=== PATIENT | female | born 1945 | race Asian ===

== ENCOUNTER 2024-04-04 22:13 | Emergency (ER) | payer MEDICARE, MEDICAID ==
[~2024-04-04] VITALS: Ht 157.5 cm; Wt 59.0 kg
[2024-04-04 22:20] VITALS: BP 151/84; PULSE 72; RESP 16; TEMP 98.4; O2SAT 98
[2024-04-04] MEDS: DIPHENHYDRAMINE 25MG CAPSULE PO ONE (23:54)
[2024-04-04] MEDS: FAMOTIDINE 20MG TABLET PO ONE (23:55)
[2024-04-05 00:20] LABS: CLARITY URINE CLEAR (CLEAR); COLOR URINE YELLOW (YELLOW); GLUCOSE URINE NEGATIVE (NEGATIVE); KETONES URINE NEGATIVE (NEGATIVE); LEUKOCYTE ESTERASE URINE NEGATIVE (NEGATIVE); NITRITE URINE NEGATIVE (NEGATIVE); OCCULT BLOOD URINE NEGATIVE (NEGATIVE); PROTEIN URINE NEGATIVE (NEGATIVE); SPECIFIC GRAVITY URINE 1.008 (1.005-1.030); UROBILINOGEN URINE 0.2 E.U./dL (0.2-1.0)
[2024-04-05 00:27] LABS: BASOPHILS % 0.7 % (0.0-2.0); EOSINOPHILS % 4.1 % (0.0-5.0); HEMATOCRIT. 38.2 % (36.0-48.0); LYMPHOCYTES % 18.2 % (20.0-50.0); MEAN CORPUSCULAR HEMOGLOBIN 29.7 pg (28.0-32.0); MEAN CORPUSCULAR VOLUME 87.2 fL (81.0-99.0); MEAN PLATELET VOLUME 7.4 fl (7.4-10.4); MONOCYTES % 7.6 % (2.0-8.0); NEUTROPHILS % 69.4 % (40.0-76.0); PLATELET 326 x1000/uL (130-400); RED BLOOD CELL COUNT 4.38 mill/uL (4.2-5.4); RED CELL DISTRIBUTION WIDTH 13.2 % (11.6-14.6); WHITE BLOOD COUNT 9.6 x1000/uL (4.5-11.0)
[2024-04-05 00:37] LABS: CHLORIDE 104 mEq/L (98-107); SODIUM 139 mEq/L (136-145)
[2024-04-05 00:38] LABS: CARBON DIOXIDE 28 mEq/L (21-32)
[2024-04-05 00:43] LABS: CREATININE 0.8 mg/dL (0.6-1.0); GLUCOSE 156 mg/dL (70-105); UREA NITROGEN BLOOD 10 mg/dL (9-23)
[2024-04-05] MEDS ORDERED: PERM60CR4 TP (01:48)
[2024-04-05] MEDS ORDERED: HYDR26CR2 TP (01:48)
[2024-04-05] MEDS ORDERED: DIPH25CA83 PO (01:48)
[2024-04-05] MEDS: POTASSIUM CHLORIDE 20MEQ TABLET SR PO STA (02:10)
== END 2024-04-05 03:08 | disposition home or self-care (01) ==
LOC: ER 22:13
DX: B86 Scabies (principal); R35.0 Frequency of micturition; E87.6 Hypokalemia; I10 Essential (primary) hypertension; Z86.73 Personal history of transient ischemic attack (TIA), and cerebral infarction without residual deficits
CPT/HCPCS: 99284; 80048; 81003; 85025; 36415; Q0163